=== PATIENT | female | born 1975 | race Caucasian/White ===

== ENCOUNTER → 2017-01-08 | Outpatient (CLI) | payer BC ==
[~2017-01-08] MED LIST: MULTI-DAY VITAM1 TAB PO; PRILOSEC20 M1 PO
--- NOTE | ~2017-01-08 | MR190 ---
[facility] A Service of [facility] & [facility] RADIOLOGY TEXT RESULTS PATIENT: TOMER ABEL [facility] : [birth year] UNIT #: [id number] AGE: [address]: AMADA EUCEDA APRN SEX: F ORDER DR: [id number] [facility] [address] [place], [place] [address] [id number] O MR#: [id number] Acc #: [id number] NAME: TOMER ABEL : 1975 SEX: F STUDY DATE/TIME: 01/08/2017 14:31 UNIT: [facility] ROOM: STUDY DESCRIPTION: MR Shoulder Arthrogram Lt Attending Physician: Amada Euceda Aprn Referring Physician: Amada Euceda Aprn Ordering Physician: Amada uEceda Aprn Primary Care Physician: Chantell Kaapdia M.D. MRI CENTER REPORT This report is preliminary unless electronic signature is present. EXAM Left shoulder MRI arthrogram, 01/08/2017. HISTORY 41-year-old female with left shoulder pain and decreased range of motion for 2 years. No specific injury. No prior left shoulder surgery. Order requests evaluation for subacromial bursitis. COMPARISON Left shoulder MRI, 03/03/2016. Left shoulder x-rays, 01/01/2017. Conventional left shoulder arthrogram, 01/08/2017. TECHNIQUE Routine unenhanced multiplanar, multisequence high-field MR imaging of the left shoulder was performed following the intraarticular administration of dilute gadolinium. FINDINGS There is mild supraspinatus and infraspinatus tendinopathy. No evidence of tear. Teres minor and subscapularis tendons are intact. The long biceps tendon is intact and well positioned in the bicipital groove. No evidence of a labral tear. Glenohumeral articular cartilage is intact. No loose intraarticular bodies. Acromioclavicular joint is within normal limits. No subacromial spur. No evidence of impingement on the supraspinatus outlet. Minimal inflammation of the subacromial-subdeltoid bursa. Bone marrow signal is within expected limits. Visualized musculature is unremarkable. STS. [facility] A Service of [facility] & [facility] RADIOLOGY TEXT RESULTS PATIENT: TOMER ABEL LOCATION: [facility] : 73 UNIT #: [id number] AGE: [address]: AMADA EUCEDA APRN SEX: F ORDER DR: IMPRESSION 1. Mild supraspinatus and infraspinatus tendinopathy. No evidence of a rotator cuff tear. 2. No significant labral pathology. 3. Minimal inflammation of the subacromial-subdeltoid bursa. 4. No MR evidence of supraspinatus outlet impingement. Dictated by... London Prince M.D. THIS IS AN ELECTRONICALLY VERIFIED REPORT London Prince M.D. at 01/11/2017 4:36 PM Sue TD: 01/11/2017 14:11 JOB #: [id number] MRI CENTER REPORT Page 1 of 1 COPY
--- NOTE | ~2017-01-08 | XA32 ---
[facility] A Service [facility] RADIOLOGY TEXT RESULTS PATIENT: TOMER ABEL LOCATION: [facility] : 73 UNIT #: [id number] AGE: [address]: AMADA EUCEDA APRN SEX: F ORDER DR: [id number] [facility] [address] [place], [place] [address] [id number] O MR#: [id number] Acc #: [id number] NAME: TOMER ABEL. : 1975 SEX: F STUDY DATE/TIME: 01/08/2017 13:44 UNIT: [facility] ROOM: STUDY DESCRIPTION: XA Arthrogram Shoulder Lt Attending Physician: Amada Euceda Aprn Referring Physician: Amada Euceda Aprn Ordering Physician: Amada Euceda Aprn Primary Care Physician: Chantell Kapadia M.D. MEDICAL IMAGING REPORT This report is preliminary unless electronic signature is present EXAM Left shoulder arthrogram. DATE OF EXAM 01/08/2017 HISTORY Inject gadolinium prior to MRI. Shoulder pain. Chronic repetitive work injury for years. TECHNIQUE The procedure was explained to the patient including risks, benefits and complications. Informed consent was obtained and a formal time-out procedure was utilized. Using sterile technique and following local anesthesia with an 1% Xylocaine, a 25-gauge needle was placed into the shoulder joint under fluoroscopic guidance. 5 spot films were obtained with a total dose of 5 mGy and a total fluoroscopy time 0.2 minutes. FINDINGS The joint was injected with about 12 mL of solution comprised of 20 mL of Isovue and 0.1 mL of gadolinium. The rotator cuff is intact. The joint capsule is normal in size. No intraarticular loose bodies are seen. IMPRESSION Negative shoulder arthrogram. MRI scanning is pending. Dictated by... Lacho Rodriguez M.D. THIS IS AN ELECTRONICALLY VERIFIED REPORT Lacho Rodriguez M.D. at 01/08/2017 4:55 PM RLF/jt [facility] A Service of [facility] RADIOLOGY TEXT RESULTS PATIENT: TOMER ABEL [facility] : 73 UNIT #: [id number] AGE: [address]: AMADA EUCEDA APRN SEX: F ORDER DR: TD: 01/08/2017 16:13 JOB #: [id number] MEDICAL IMAGING REPORT Page 1 of 1 COPY
== END | disposition home or self-care (01) ==
LOC: CMRI 12:47
DX: M75.52 Bursitis of left shoulder (principal); M25.512 Pain in left shoulder; M75.82 Other shoulder lesions, left shoulder
CPT/HCPCS: 73040; 73222; 77002; A9577; Q9967

== ENCOUNTER → 2017-06-02 | Outpatient (CLI) | payer BC ==
--- NOTE | ~2017-06-02 | CR63 ---
[facility] A Service of [facility] & [facility] RADIOLOGY TEXT RESULTS PATIENT: TOMER ABEL LOCATION: [facility] : 73 UNIT #: [id number] AGE: [address]: Chantell Kapadia MD SEX: F ORDER DR: [id number] [facility] [address] [place], [place] [address] [id number] O MR#: [id number] Acc #: [id number] NAME: TOMER ABEL : 1975 SEX: F STUDY DATE/TIME: 06/02/2017 13:37 UNIT: [facility] ROOM: STUDY DESCRIPTION: CR Chest 2 View Attending Physician: Chantell Kapadia M.D. Referring Physician: Chantell Kapadia M.D. Ordering Physician: Chantell Kapadia M.D. Primary Care Physician: Chantell Kapadia M.D. MEDICAL IMAGING REPORT This report is preliminary unless electronic signature is present EXAM Chest PA and lateral 06/02/2017 HISTORY Cough and shortness of breath for 5 days. Acute bronchitis with bronchospasm. FINDINGS PA and lateral examination of the chest upright shows a good expansion of the parenchyma with a normal distribution of the pulmonary vascularity. There is no indication of congestion, effusion, infiltrate, tumor, or nodular density. The pleural reflections and diaphragmatic contours are normal. The cardiac silhouette and mediastinal anatomy is within normal limits. IMPRESSION Normal chest. Dictated by... Floyd Morel M.D. THIS IS AN ELECTRONICALLY VERIFIED REPORT Floyd Morel M.D. at 06/03/2017 2:12 PM KRT/pcl TD: 06/02/2017 18:55 JOB #: [id number] MEDICAL IMAGING REPORT Page 1 of 1 COPY
== END | disposition home or self-care (01) ==
LOC: CRAD 13:26
DX: J20.9 Acute bronchitis, unspecified (principal)
CPT/HCPCS: 71020